=== PATIENT | female | born 1985 | race American Indian/Alaskan Native ===

== ENCOUNTER 2017-06-19 05:14 | Emergency (ER) | payer MEDICAID ==
[2017-06-19 05:39] VITALS: BP 104/64
--- NOTE | 2017-06-19 06:35 | Emergency Department Report ---
ED ENT HPI - General Chief complaint: Earache Stated complaint: EAR INFECTION Time Seen by Provider: 06/19/17 06:28 Source: patient Mode of arrival: Ambulatory Limitations: No Limitations - History of Present Illness Initial comments: earache x 1 week with fever for 3 days discharge x 2 days, sick daughter with aom 1 week ago 6 month at this time, pt has good [employer] follow up with [facility], and Primary care doctor , symptoms now include 5/10 pain and tenderness with movement, symptoms no relieve by sweet oil attempted for past 3 days. MD complaint: ear pain Onset/Timin -: week(s) Location: L ear Severity: moderate Severity scale (0 -10): 5 Quality: aching Consistency: intermittent Improves with: none Worsens with: position, movement Associated Symptoms: fever, discharge from ear. denies: tinnitus, hearing loss , rhinorrhea - Related Data Previous Rx's Medication Instructions Recorded Last Taken Type Acetaminophen [Acetaminophen 325 mg HI Q6HR PRN #60 supp 06/19/17 Unknown Rx SUPPOS] Cefdinir 300 mg PO BID #20 capsule 06/19/17 Unknown Rx Cipro/Dexameth 0.3/0.1% [Ciprodex 4 drops OT BID #1 bottle 06/19/17 Unknown Rx OTIC] Allergies Allergy/AdvReac Type Severity Reaction Status Date / Time No Known Allergies Allergy Verified 06/19/17 05:35 ED Dental HPI - General Chief complaint: Earache Stated complaint: EAR INFECTION Time Seen by Provider: 06/19/17 06:28 Source: patient Mode of arrival: Ambulatory Limitations: No Limitations - History of Present Illness MD complaint: ear pain Onset/Timin -: Sudden, week(s) Severity: moderate Quality: aching Consistency: intermittent Improves with: none Worsens with: movement - Related Data Previous Rx's Medication Instructions Recorded Last Taken Type Acetaminophen [Acetaminophen 325 mg HI Q6HR PRN #60 supp 06/19/17 Unknown Rx SUPPOS] Cefdinir 300 mg PO BID #20 capsule 06/19/17 Unknown Rx Cipro/Dexameth 0.3/0.1% [Ciprodex 4 drops OT BID #1 bottle 06/19/17 Unknown Rx OTIC] Allergies Allergy/AdvReac Type Severity Reaction Status Date / Time No Known Allergies Allergy Verified 06/19/17 05:35 ED Review of Systems ROS: Stated complaint: EAR INFECTION Other details as noted in HPI Constitutional: denies: chills, fever Eyes: denies: eye pain, eye discharge, vision change ENT: ear pain Respiratory: denies: cough, shortness of breath, wheezing Cardiovascular: denies: chest pain, palpitations Endocrine: no symptoms reported Gastrointestinal: denies: abdominal pain, nausea, diarrhea Genitourinary: denies: urgency, dysuria, discharge Musculoskeletal: denies: back pain, joint swelling, arthralgia Skin: denies: rash, lesions Neurological: denies: headache, weakness, paresthesias Psychiatric: denies: anxiety, depression Hematological/Lymphatic: denies: easy bleeding, easy bruising ED Past Medical Hx - Past Medical History Previous Medical History?: No - Surgical History Past Surgical History?: No - Social History Smoking Status: Never Smoker Substance Use Type: None - Medications Home Medications: Home Medications Medication Instructions Recorded Confirmed Last Taken Type Acetaminophen [Acetaminophen 325 mg HI Q6HR PRN #60 supp 06/19/17 Unknown Rx SUPPOS] Cefdinir 300 mg PO BID #20 capsule 06/19/17 Unknown Rx Cipro/Dexameth 0.3/0.1% [Ciprodex 4 drops OT BID #1 bottle 06/19/17 Unknown Rx OTIC] ED Physical Exam - General Limitations: No Limitations General appearance: alert - Head Head exam: Present: atraumatic, normocephalic - Eye Eye exam: Present: normal appearance, PERRL, EOMI Pupils: Present: normal accommodation - ENT ENT exam: Present: mucous membranes moist - Expanded ENT Exam Expanded TM/Canal exam: Erythema: Left TM, Loss of Landmarks: Left TM, Canal Discharge: Left TM, Canal Tenderness: Left TM Mouth exam: Present: normal external inspection, tongue normal. Absent: drooling, trismus, muffled voice Teeth exam: Present: normal inspection Throat exam: Positive: normal inspection. Negative: tonsillar erythema, tonsillomegaly, tonsillar exudate, R peritonsillar mass, L peritonsillar mass - Neck Neck exam: Present: normal inspection, full ROM. Absent: lymphadenopathy, thyromegaly - Respiratory Respiratory exam: Present: normal lung sounds bilaterally. Absent: respiratory distress - Cardiovascular Cardiovascular Exam: Present: regular rate, normal rhythm. Absent: systolic murmur, diastolic murmur, rubs, gallop - GI/Abdominal GI/Abdominal exam: Present: soft, normal bowel sounds - Rectal Rectal exam: Present: deferred - Extremities Exam Extremities exam: Present: normal inspection, normal capillary refill. Absent: tenderness, pedal edema, joint swelling, calf tenderness - Back Exam Back exam: Present: normal inspection - Neurological Exam Neurological exam: Present: alert, oriented X3, CN II-XII intact, normal gait, reflexes normal. Absent: motor sensory deficit - Psychiatric Psychiatric exam: Present: normal affect, normal mood - Skin Skin exam: Present: warm, dry, intact, normal color. Absent: rash ED Course Vital Signs 06/19/17 05:35 Temperature 98.8 F Pulse Rate 111 H Respiratory 20 Rate Blood Pressure 104/64 O2 Sat by Pulse 98 Oximetry ED Medical Decision Making - Medical Decision Making pt is a 27 y/o aaf 6 months who presents for ear pain and fever exam: left Otitis externa however loss landmarks and fever will treat for AOM, pt will follow up with [employer] as scheduled, will follow up with primary care as directed, pt verbalized agreement and understanding with discharge plan. Critical care attestation.: If time is entered above; I have spent that time in minutes in the direct care of this critically ill patient, excluding procedure time. ED Disposition Clinical Impression: AOM (acute otitis media) Qualifiers: Otitis media type: mucoid Laterality: left Qualified Code(s): H65.112 - Acute and subacute allergic otitis media (mucoid) (sanguinous) (serous), left ear Otitis externa Qualifiers: Otitis externa type: diffuse Chronicity: acute Laterality: left Qualified Code( s): H60.312 - Diffuse otitis externa, left ear Disposition: - TO HOME OR SELFCARE Is pt being admited?: No Does the pt Need Aspirin: No Condition: Good Instructions: Otitis Externa (ED), Otitis Media (ED) Prescriptions: Acetaminophen [Acetaminophen SUPPOS] 325 mg HI Q6HR PRN #60 supp PRN Reason: Pain Cefdinir 300 mg PO BID #20 capsule Cipro/Dexameth 0.3/0.1% [Ciprodex OTIC] 4 drops OT BID #1 bottle Referrals: PRIMARY CARE, [Primary Care Provider] - 3-5 Days Forms: Work/School Release Form(ED) Time of Disposition: 06:46
[2017-06-19] MEDS ORDERED: TYLENOL PO ONE (06:49)
== END 2017-06-19 07:01 | disposition home or self-care (01) ==
LOC: ED 05:14 → EDBD 05:14 → ED 07:01
DX: H65.112 Acute and subacute allergic otitis media (mucoid) (sanguinous) (serous), left ear (principal); H60.312 Diffuse otitis externa, left ear
CPT/HCPCS: 99282

== ENCOUNTER 2017-10-30 15:19 | Emergency (ER) | payer MEDICAID ==
[2017-10-30 16:07] LABS: Basophils # (Auto) 0.1 K/mm3 (0.0-0.1); Basophils % (Auto) 0.8 % (0.0-1.8); Eosinophils # (Auto) 0.1 K/mm3 (0.0-0.4); Eosinophils % (Auto) 1.1 % (0.0-4.3); Hematocrit 37.2 % (30.3-42.9); Hemoglobin 12.5 gm/dl (10.1-14.3); Lymphocytes # (Auto) 3.2 K/mm3 (1.2-5.4); Lymphocytes % (Auto) 46.9 % (13.4-35.0); Mean Corpuscular HGB Conc 34 % (30-34); Mean Corpuscular Hemoglobin 27 pg (28-32); Mean Corpuscular Volume 80 fl (79-97); Monocytes # (Auto) 0.4 K/mm3 (0.0-0.8); Monocytes % (Auto) 5.7 % (0.0-7.3); Platelet Count 255 K/mm3 (140-440); Red Blood Count 4.63 M/mm3 (3.65-5.03); Red Cell Distribution Width 12.9 % (13.2-15.2)
[2017-10-30 16:11] LABS: BUN/Creatinine Ratio 26; Blood Urea Nitrogen 13 mg/dL (7-17); Calcium 9.4 mg/dL (8.4-10.2); Hemolysis Index 5
[2017-10-30 16:19] LABS: INR 1.03 (0.87-1.13)
[2017-10-30 16:20] LABS: Partial Thromboplastin Time 36.5 Sec. (24.2-36.6)
[2017-10-30] MEDS ORDERED: ZOFRAN IV ONE (17:17)
[2017-10-30] MEDS ORDERED: MORPHINE IV ONE (17:17)
[2017-10-30] MEDS ORDERED: TORADOL IV ONE (17:17)
--- NOTE | 2017-10-30 17:40 | Emergency Department Report ---
ED Chest Pain HPI - General Chief Complaint: Chest Pain Stated Complaint: CHEST PAIN Time Seen by Provider: 10/30/17 17:05 Source: patient Mode of arrival: Ambulatory Limitations: No Limitations - History of Present Illness Initial Comments: 32 year old female with a past medical history asthma and PE presents complaining of chest pain and Lovenox noncompliance. Patient first had a PE in 2006 during her . At that moment on she has been prescribed Lovenox whenever she is . Patient just gave on September 12 and took Lovenox throughout her . Patient stopped the Lovenox 2 days ago because she thought it was causing her to be dizzy and have a headache. She developed chest pain this morning and therefore took a dose of Lovenox today. She complains of sharp pain to her sternal area and mid thoracic area that is intermittent. Pain is rated 8/10 and intensity, worse with movement, deep inspiration, and palpation. She denies shortness of breath, edema, or recent travel. Patient is unclear as to how long she needs to continue the Lovenox states that in the past she has required up to 1 month and didn't discontinue statin medication until she is again. Patient states she is not breast-feeding. Patient states she visited [facility] September [address] scan that was only positive for gas. Patient states she has been having some belching as well - Related Data Previous Rx's Medication Instructions Recorded Last Taken Type Acetaminophen [Acetaminophen TAB] 325 mg PO Q6HR PRN #60 tablet 06/19/17 Unknown Rx Cefdinir 300 mg PO BID #20 capsule 06/19/17 Unknown Rx Cipro/Dexameth 0.3/0.1% [Ciprodex 4 drops OT BID #1 bottle 06/19/17 Unknown Rx OTIC] traMADol [Ultram 50 MG tab] 50 mg PO Q6HR PRN #20 tablet 10/30/17 Unknown Rx Allergies Allergy/AdvReac Type Severity Reaction Status Date / Time No Known Allergies Allergy Verified 10/30/17 15:21 Heart Score - HEART Score History: Slightly suspicious EKG: Normal Age: < 45 Risk factors: No known risk factors Troponin: < normal limit HEART Score: 0 ED Review of Systems ROS: Stated complaint: CHEST PAIN Other details as noted in HPI Comment: All other systems reviewed and negative Other: Constitutional: No fevers chills Eyes: No eye pain visual changes ENT: No ear pain or throat pain Neck: Denies pain Respiratory: Denies cough wheezing shortness of breath Cardiovascular: As per HPI GI: Denies abdominal pain, nausea, vomiting, diarrhea : Denies dysuria Musculoskeletal: Denies back pain, joint swelling Skin: Denies rash, lesions, erythema Neurologic: Denies headache, numbness, weakness Psychiatric: Denies suicidal ideation, hallucinations ED Past Medical Hx - Past Medical History Hx Asthma: Yes Additional medical history: PE - Surgical History Past Surgical History?: No - Social History Smoking Status: Never Smoker Substance Use Type: None - Medications Home Medications: Home Medications Medication Instructions Recorded Confirmed Last Taken Type Acetaminophen [Acetaminophen TAB] 325 mg PO Q6HR PRN #60 tablet 06/19/17 Unknown Rx Cefdinir 300 mg PO BID #20 capsule 06/19/17 Unknown Rx Cipro/Dexameth 0.3/0.1% [Ciprodex 4 drops OT BID #1 bottle 06/19/17 Unknown Rx OTIC] traMADol [Ultram 50 MG tab] 50 mg PO Q6HR PRN #20 tablet 10/30/17 Unknown Rx ED Physical Exam - General Limitations: No Limitations - Other Other exam information: General: No limitations, patient is alert in no acute distress Head exam: Atraumatic, normocephalic Eyes exam: Normal appearance, pupils equal reactive to light, extraocular movements intact ENT: Moist mucous membrane, normal oropharynx Neck exam: Normal inspection, full range of motion, no meningismus nontender Respiratory exam: Clear to auscultation bilateral, no wheezes, rales, crackles. Reproducible sternal chest wall tenderness Cardiovascular: Normal rate and rhythm Abdomen: Soft, nondistended, and nontender, with normal bowel sounds, no rebound, or guarding Extremity: Full range of motion normal inspection no deformity, no calf tenderness or edema Back: Normal Inspection, full range of motion, no tenderness Neurologic: Alert, oriented x3, cranial nerves intact, no motor or sensory deficit Psychiatric: normal affect, normal mood Skin: Warm, dry, intact ED Course Vital Signs 10/30/17 15:21 Temperature 97.9 F Pulse Rate 79 Respiratory 20 Rate Blood Pressure 99/65 O2 Sat by Pulse 100 Oximetry - Consultations Consultation #1: 10/30/17 18:[address] 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 He states that patients may take Lovenox anywhere from 6 weeks to 3 months . Only Lovenox is indicated and not alternative anticoagulants. I informed him I'll encourage patient to follow-up in the office for further management TAZ score - Taz Score Age > 65: (0) No Aspirin use within the Past 7 Days: (0) No 3 or more CAD Risk Factors: (0) No 2 or more Angina events in past 24 hrs: (0) No Known CAD with more than 50% Stenosis: (0) No Elevated Cardiac Markers: (0) No ST Deviation Greater than 0.5mm: (0) No TAZ Score: 0 ED Medical Decision Making - Lab Data Result diagrams: 10/30/17 15:33 10/30/17 15:33 Lab Results 10/30/17 10/30/17 10/30/17 Range/Units 15:33 15:33 15:33 WBC 6.9 (4.5-11.0) K/mm3 RBC 4.63 (3.65-5.03) M/mm3 Hgb 12.5 (10.1-14.3) gm/dl Hct 37.2 (30.3-42.9) % MCV 80 (79-97) fl MCH 27 L (28-32) pg MCHC 34 (30-34) % RDW 12.9 L (13.2-15.2) % Plt Count 255 (140-440) K/mm3 Lymph % (Auto) 46.9 H (13.4-35.0) % [place] % (Auto) 5.7 (0.0-7.3) % Eos % (Auto) 1.1 (0.0-4.3) % Baso % (Auto) 0.8 (0.0-1.8) % Lymph # 3.2 (1.2-5.4) K/mm3 [place] # 0.4 (0.0-0.8) K/mm3 Eos # 0.1 (0.0-0.4) K/mm3 Baso # 0.1 (0.0-0.1) K/mm3 Seg Neutrophils % 45.5 (40.0-70.0) % Seg Neutrophils # 3.1 (1.8-7.7) K/mm3 PT 14.0 (12.2-14.9) Sec. INR 1.03 (0.87-1.13) APTT 36.5 (24.2-36.6) Sec. D-Dimer 361.00 H (0-234) ng/mlDDU Sodium 138 (137-145) mmol/L Potassium 4.2 (3.6-5.0) mmol/L Chloride 99.9 (98-107) mmol/L Carbon Dioxide 25 (22-30) mmol/L Anion Gap 17 mmol/L BUN 13 (7-17) mg/dL Creatinine 0.5 L (0.7-1.2) mg/dL Estimated GFR > 60 ml/min BUN/Creatinine Ratio 26 % Glucose 84 (65-100) mg/dL Calcium 9.4 (8.4-10.2) mg/dL Troponin T < 0.010 (0.00-0.029) ng/mL - EKG Data -: EKG Interpreted by Me EKG shows normal: sinus rhythm, axis (27), QRS complexes (93), ST-T waves (no stemi/t inv) Rate: normal (61) - EKG Data When compared to previous EKG there are: previous EKG unavailable - Radiology Data Radiology results: report reviewed (ct angio chest: normal) - Medical Decision Making Patient's pain is atypical and reproducible likely costochondritis. Patient also having some gas related pains as well. She will be encouraged to continue Tums/antacids as needed. She was also informed to avoid NSAIDs and she has taken Lovenox and will be given tramadol for pain - Differential Diagnosis PE, costochondritis, dyspepsia/ gas, atypical chest pain, [place] Critical Care Time: No Critical care attestation.: If time is entered above; I have spent that time in minutes in the direct care of this critically ill patient, excluding procedure time. ED Disposition Clinical Impression: Costochondritis, acute Disposition: DC-01 TO HOME OR SELFCARE Is pt being admited?: No Does the pt Need Aspirin: No Condition: Stable Instructions: Costochondritis (ED) Additional Instructions: Take the medication as prescribed. Follow up with your doctor and the reinforcing steel worker wire mesh provided. Return if symptoms worsen Prescriptions: traMADol [Ultram 50 MG tab] 50 mg PO Q6HR PRN #20 tablet PRN Reason: Pain Referrals: KATHRIN SINGH MD [Staff Physician] - 3-5 Days (reinforcing steel worker wire mesh) PRIMARY CARE, [Primary Care Provider] - 3-5 Days Time of Disposition: 19:15
--- NOTE | 2017-10-30 19:05 | Cat Scan Report ---
FINAL REPORT PROCEDURE: CT angiogram chest with contrast. TECHNIQUE: Computerized tomographic angiography of the chest was performed after the IV injection of iodinated nonionic contrast including image processing. The image data was postprocessed using 2-dimensional multiplanar reformatted (MPR) and 3-dimensional (MIP and/or volume rendered) techniques. HISTORY: Chest pain, history of pulmonary embolism, noncompliance with Lovenox. COMPARISON: No prior studies are available for comparison. FINDINGS: The trachea and central bronchi appear normal. The lungs are clear and well expanded. There are no signs of pneumonia. There are no pulmonary masses. There are no pleural effusions. The thoracic aorta has a normal caliber without evidence of dissection. The pulmonary arteries enhance normally. There are no definite filling defects to indicate pulmonary embolism. There is no mediastinal adenopathy. The heart size is normal. The adrenal glands are not enlarged. The thoracic skeleton appears intact. IMPRESSION: Normal study.
[2017-10-30 19:42] VITALS: BP 128/83
== END 2017-10-30 19:25 | disposition home or self-care (01) ==
LOC: ED 15:19
DX: M94.0 Chondrocostal junction syndrome [Tietze] (principal); J45.909 Unspecified asthma, uncomplicated
CPT/HCPCS: 36415; 71275; 80048; 84484; 85025; 85379; 85610; 85730; 93005; 93010; 96374; 96375; 99284; J1885; J2405; Q9967

== ENCOUNTER 2018-04-08 15:22 | Outpatient (CLI) | payer MEDICAID ==
--- NOTE | 2018-04-08 16:18 | XRay Report ---
FINAL REPORT EXAM: XR SHOULDER 2+V RT HISTORY: SHOULDER PAIN TECHNIQUE: AP, Y, and oblique views of the right shoulder PRIORS: None. FINDINGS: There is no evidence of acute fracture or dislocation. Joint spaces are maintained and bony mineralization is normal. Soft tissues are unremarkable. IMPRESSION: No acute abnormality identified in the right shoulder.
--- NOTE | 2018-04-08 16:20 | XRay Report ---
FINAL REPORT EXAM: XR SPINE THORACIC 3V HISTORY: UPPER BACK PAIN TECHNIQUE: AP, lateral and swimmer's views of the thoracic spine. PRIORS: None. FINDINGS: The vertebral body heights and disc spaces are well maintained. The alignment is normal. Pedicles are intact bilaterally at all levels. The paraspinal soft tissues are unremarkable. IMPRESSION: Normal thoracic spine.
== END 2018-04-08 15:23 | disposition home or self-care (01) ==
LOC: XRAY 15:22
PROVIDERS: ATTEND Internal Medicine
DX: M54.6 Pain in thoracic spine (principal); M25.511 Pain in right shoulder
CPT/HCPCS: 72072

== ENCOUNTER 2018-08-06 17:02 | Emergency (ER) | payer MEDICAID | END 2018-08-06 18:33 | disposition left against medical advice (07) | LOC: ED 17:02 | DX: M79.645 Pain in left finger(s) (principal); Z53.21 Procedure and treatment not carried out due to patient leaving prior to being seen by health care provider ==

== ENCOUNTER 2019-01-06 11:58 | Emergency (ER) | payer MEDICARE ==
[2019-01-06] MEDS ORDERED: ASPIRIN PO ONE (12:54)
[2019-01-06 13:18] LABS: Basophils # (Auto) 0.1 K/mm3 (0.0-0.1); Basophils % (Auto) 0.5 % (0.0-1.8); Eosinophils % (Auto) 0.1 % (0.0-4.3); Hemoglobin 11.9 gm/dl (10.1-14.3); Lymphocytes # (Auto) 2.5 K/mm3 (1.2-5.4); Lymphocytes % (Auto) 25.4 % (13.4-35.0); Mean Corpuscular HGB Conc 33 % (30-34); Mean Corpuscular Volume 81 fl (79-97); Monocytes # (Auto) 0.4 K/mm3 (0.0-0.8); Monocytes % (Auto) 4.5 % (0.0-7.3); Platelet Count 360 K/mm3 (140-440); Red Blood Count 4.46 M/mm3 (3.65-5.03); Red Cell Distribution Width 13.1 % (13.2-15.2)
[2019-01-06 13:42] LABS: BUN/Creatinine Ratio 16; Blood Urea Nitrogen 8 mg/dL (7-17); Calcium 9.2 mg/dL (8.4-10.2); Hemolysis Index 6
--- NOTE | 2019-01-06 13:51 | XRay Report ---
ROUTINE CHEST, TWO VIEWS: HISTORY: chest pain. The trachea, heart, mediastinal contour, lung fontenot and bony thorax are unremarkable. IMPRESSION: Unremarkable chest x-ray.
--- NOTE | 2019-01-06 17:28 | Emergency Department Report ---
ED General Adult HPI - General Chief complaint: Arrhythmia/Palpitations Stated complaint: PALPITATIONS Time Seen by Provider: 01/06/19 15:41 Source: patient Mode of arrival: Ambulatory Limitations: No Limitations - History of Present Illness Initial comments: 33-year-old [place] female with past medical history of palpitations and chest pain. Currently been evaluated by cardiology with a two-week Holter monitor presents to the emergency department complaining of exacerbation while eating pancakes at [facility] earlier today. States she was eating and sitting down. She had a sudden onset of a racing heart pressure to her back that has since then resolved. She still has occasional pressure sensation to the back. She she is postictal Holter monitor back to the cardiology just today, but did not make it to the office because she decided to come to the ER to get her her issue evaluated. She reports no syncope, hemoptysis, hematemesis, fever, trauma, nausea, vomiting or shortness of breath. -: Sudden, minutes(s) (the episode lasted for a matter of minutes) Location: back Radiation: non-radiation Severity scale (0 -10): 10 Consistency: constant, now resolved Improves with: none Worsens with: none Associated Symptoms: shortness of breath (no shortness of breath occurring sensation while heart was racing earlier today around 11:00). denies: cough, diaphoresis, fever/chills, loss of appetite, malaise, syncope, weakness - Related Data Previous Rx's Medication Instructions Recorded Last Taken Type Acetaminophen [Acetaminophen TAB] 325 mg PO Q6HR PRN #60 tablet 06/19/17 Unknown Rx Cefdinir 300 mg PO BID #20 capsule 06/19/17 Unknown Rx Cipro/Dexameth 0.3/0.1% [Ciprodex 4 drops OT BID #1 bottle 06/19/17 Unknown Rx OTIC] traMADol [Ultram 50 MG tab] 50 mg PO Q6HR PRN #20 tablet 10/30/17 Unknown Rx Acetaminophen [Tylenol] 325 mg PO TID #20 capsule 09/21/18 Unknown Rx Amoxicillin [Amoxicillin TAB] 875 mg PO BID #10 tablet 09/21/18 Unknown Rx Nystas/Diphen/Xyl Visc/Mylanta 15 ml PO TID #120 ml 09/21/18 Unknown Rx [Magic Mouthwash] predniSONE [Deltasone] 10 mg PO QDAY #5 tab 11/21/18 Unknown Rx hydrOXYzine HCL [Atarax] 25 mg PO QHS PRN #30 tablet 12/12/18 Unknown Rx Allergies Allergy/AdvReac Type Severity Reaction Status Date / Time No Known Allergies Allergy Verified 10/30/17 15:21 ED Review of Systems ROS: Stated complaint: PALPITATIONS Other details as noted in HPI Constitutional: denies: chills, fever Eyes: denies: eye pain, eye discharge, vision change ENT: denies: ear pain, throat pain Respiratory: denies: cough, shortness of breath, wheezing Cardiovascular: palpitations. denies: chest pain Endocrine: no symptoms reported Gastrointestinal: denies: abdominal pain, nausea, diarrhea Genitourinary: denies: urgency, dysuria, discharge Musculoskeletal: denies: back pain, joint swelling, arthralgia Skin: denies: rash, lesions Neurological: denies: headache, weakness, paresthesias Psychiatric: denies: anxiety, depression Hematological/Lymphatic: denies: easy bleeding, easy bruising ED Past Medical Hx - Past Medical History Hx GERD: Yes Hx Asthma: Yes Additional medical history: PE. INCREASE HEART RATE - Social History Smoking Status: Never Smoker Substance Use Type: None - Medications Home Medications: Home Medications Medication Instructions Recorded Confirmed Last Taken Type Acetaminophen [Acetaminophen TAB] 325 mg PO Q6HR PRN #60 tablet 06/19/17 Unknown Rx Cefdinir 300 mg PO BID #20 capsule 06/19/17 Unknown Rx Cipro/Dexameth 0.3/0.1% [Ciprodex 4 drops OT BID #1 bottle 06/19/17 Unknown Rx OTIC] traMADol [Ultram 50 MG tab] 50 mg PO Q6HR PRN #20 tablet 10/30/17 Unknown Rx Acetaminophen [Tylenol] 325 mg PO TID #20 capsule 09/21/18 Unknown Rx Amoxicillin [Amoxicillin TAB] 875 mg PO BID #10 tablet 09/21/18 Unknown Rx Nystas/Diphen/Xyl Visc/Mylanta 15 ml PO TID #120 ml 09/21/18 Unknown Rx [Magic Mouthwash] predniSONE [Deltasone] 10 mg PO QDAY #5 tab 09/21/18 Unknown Rx hydrOXYzine HCL [Atarax] 25 mg PO QHS PRN #30 tablet 12/12/18 Unknown Rx ED Physical Exam - General Limitations: No Limitations General appearance: alert, in no apparent distress, other (note no acute distress, talking on the phone and taxing with no complications. Speaking in full sentences, smiling, appears to be in good mood) - Head Head exam: Present: atraumatic, normocephalic - Eye Eye exam: Present: normal appearance - ENT ENT exam: Present: mucous membranes moist - Neck Neck exam: Present: normal inspection - Respiratory Respiratory exam: Present: normal lung sounds bilaterally. Absent: respiratory distress - Cardiovascular Cardiovascular Exam: Present: regular rate, normal rhythm. Absent: systolic murmur, diastolic murmur, rubs, gallop - GI/Abdominal GI/Abdominal exam: Present: soft, normal bowel sounds - Extremities Exam Extremities exam: Present: normal inspection - Back Exam Back exam: Present: normal inspection - Neurological Exam Neurological exam: Present: alert, oriented X3 - Psychiatric Psychiatric exam: Present: normal affect, normal mood - Skin Skin exam: Present: warm, dry, intact, normal color. Absent: rash ED Course Vital Signs 01/06/19 12:52 Temperature 98.2 F Pulse Rate 100 H Respiratory 16 Rate Blood Pressure 117/72 O2 Sat by Pulse 99 Oximetry ED Medical Decision Making - Lab Data Result diagrams: 01/06/19 13:02 01/06/19 13:02 - Medical Decision Making No new presentation to the palpitations episodes seized when the high Holter monitor with a relatively reported the benign palpatory history since wearing the monitor until today. She reported no syncope. Symptoms have have him resolved with no complications. I instructed her to follow-up with cardiology and to alert them of the occurrence to 2 day so that they checked a Holter monitor as she is not actively having any symptoms at current. Laboratory data and chest x-ray is benign. An EKG showed a heart rate of probably of 87, sinus rhythm with no ST segment developments. There is no J-point J-point elevation. No sustained ventricular arrhythmias. Critical care attestation.: If time is entered above; I have spent that time in minutes in the direct care of this critically ill patient, excluding procedure time. ED Disposition Clinical Impression: Heart palpitations Disposition: DC-01 TO HOME OR SELFCARE Is pt being admited?: No Does the pt Need Aspirin: No Condition: Stable Instructions: Palpitations (ED) Additional Instructions: Be sure to follow-up and call your learning and development assistant as for further evaluation and treatment recommendations. I left findings today were nonspecific no acute findings Referrals: ISABEL HERNANDEZSULPHUR SPRINGS MD JJ [Primary Care Provider] - 3-5 Days PAULINA PAL MD [Staff Physician] - 3-5 Days
[2019-01-06 18:00] VITALS: BP 104/72
== END 2019-01-06 17:59 | disposition home or self-care (01) ==
LOC: ED 11:58
DX: R00.2 Palpitations (principal); K21.9 Gastro-esophageal reflux disease without esophagitis; J45.909 Unspecified asthma, uncomplicated
CPT/HCPCS: 36415; 71046; 80048; 84484; 85025; 93005; 93010

== ENCOUNTER 2019-04-30 19:54 | Emergency (ER) | payer MEDICAID, MEDICARE ==
[2019-04-30] MEDS ORDERED: ALUM-MAG HYDROX-SIMETH 200-200-20MG/5ML PO ONE (20:22)
[2019-04-30] MEDS ORDERED: TYLENOL PO ONE (20:22)
--- NOTE | 2019-04-30 20:29 | Emergency Department Report ---
ED Chest Pain HPI - General Chief Complaint: Chest Pain Stated Complaint: CHEST PAIN Time Seen by Provider: 04/30/19 20:18 Source: patient, EMS Mode of arrival: Stretcher Limitations: No Limitations - History of Present Illness Initial Comments: Mrs. Morfin is a 33 yo female with hx of irregular heartbeat, PE, GERD who presents with chest discomfort for 4 hours, gradual onset mild in severity. No change with aspirin. NO radiation. No dyspnea. No leg pain. No current medication. Followed by city maintenance manager. Encouraged to take medication for rapid heartbeat. However, she desires a naturopathic approach. MD Complaint: chest pain -: Gradual Onset: during rest Pain Location: substernal Severity: moderate Severity scale (0 -10): 8 Quality: aching Consistency: constant Improves With: nothing Worsens With: nothing - Related Data Previous Rx's Medication Instructions Recorded Last Taken Type Acetaminophen [Acetaminophen TAB] 325 mg PO Q6HR PRN #60 tablet 06/19/17 Unknown Rx Cefdinir 300 mg PO BID #20 capsule 06/19/17 Unknown Rx Cipro/Dexameth 0.3/0.1% [Ciprodex 4 drops OT BID #1 bottle 06/19/17 Unknown Rx OTIC] traMADol [Ultram 50 MG tab] 50 mg PO Q6HR PRN #20 tablet 10/30/17 Unknown Rx Acetaminophen [Tylenol] 325 mg PO TID #20 capsule 09/21/18 Unknown Rx Amoxicillin [Amoxicillin TAB] 875 mg PO BID #10 tablet 09/21/18 Unknown Rx Nystas/Diphen/Xyl Visc/Mylanta 15 ml PO TID #120 ml 09/21/18 Unknown Rx [Magic Mouthwash] predniSONE [Deltasone] 10 mg PO QDAY #5 tab 09/21/18 Unknown Rx hydrOXYzine HCL [Atarax] 25 mg PO QHS PRN #30 tablet 12/12/18 Unknown Rx Allergies Allergy/AdvReac Type Severity Reaction Status Date / Time No Known Allergies Allergy Verified 03/18/19 16:28 Heart Score - HEART Score History: Slightly suspicious EKG: Normal Age: < 45 Risk factors: 1-2 risk factors Troponin: < normal limit HEART Score: 1 ED Review of Systems ROS: Stated complaint: CHEST PAIN Other details as noted in HPI Comment: All other systems reviewed and negative Constitutional: denies: fever Eyes: denies: eye discharge Respiratory: denies: cough Cardiovascular: chest pain ED Past Medical Hx - Past Medical History Previous Medical History?: Yes Hx Pulmonary Embolism: Yes Hx GERD: Yes Hx Asthma: Yes Additional medical history: irregular heart beat? - Surgical History Past Surgical History?: No - Social History Smoking Status: Never Smoker - Medications Home Medications: Home Medications Medication Instructions Recorded Confirmed Last Taken Type Acetaminophen [Acetaminophen TAB] 325 mg PO Q6HR PRN #60 tablet 06/19/17 Unknown Rx Cefdinir 300 mg PO BID #20 capsule 06/19/17 Unknown Rx Cipro/Dexameth 0.3/0.1% [Ciprodex 4 drops OT BID #1 bottle 06/19/17 Unknown Rx OTIC] traMADol [Ultram 50 MG tab] 50 mg PO Q6HR PRN #20 tablet 10/30/17 Unknown Rx Acetaminophen [Tylenol] 325 mg PO TID #20 capsule 09/21/18 Unknown Rx Amoxicillin [Amoxicillin TAB] 875 mg PO BID #10 tablet 09/21/18 Unknown Rx Nystas/Diphen/Xyl Visc/Mylanta 15 ml PO TID #120 ml 09/21/18 Unknown Rx [Magic Mouthwash] predniSONE [Deltasone] 10 mg PO QDAY #5 tab 09/21/18 Unknown Rx hydrOXYzine HCL [Atarax] 25 mg PO QHS PRN #30 tablet 12/12/18 Unknown Rx ED Physical Exam - General Limitations: No Limitations General appearance: alert - Head Head exam: Present: atraumatic, normocephalic - Eye Eye exam: Present: normal appearance - ENT ENT exam: Present: mucous membranes moist - Neck Neck exam: Present: normal inspection, full ROM - Respiratory Respiratory exam: Present: normal lung sounds bilaterally. Absent: respiratory distress, wheezes, rales, rhonchi - Cardiovascular Cardiovascular Exam: Present: regular rate, normal rhythm, normal heart sounds. Absent: systolic murmur, diastolic murmur, rubs, gallop - GI/Abdominal GI/Abdominal exam: Present: soft, normal bowel sounds. Absent: distended, tenderness, guarding, rebound - Extremities Exam Extremities exam: Present: normal inspection - Back Exam Back exam: Present: normal inspection - Neurological Exam Neurological exam: Present: alert, oriented X3 - Psychiatric Psychiatric exam: Present: normal affect, normal mood - Skin Skin exam: Present: warm, dry, intact, normal color. Absent: rash ED Course Vital Signs 04/30/19 20:16 Temperature 98.2 F Pulse Rate 86 Respiratory 16 Rate Blood Pressure 113/80 [Left] O2 Sat by Pulse 99 Oximetry TAZ score - Taz Score Age > 65: (0) No Aspirin use within the Past 7 Days: (0) No 3 or more CAD Risk Factors: (0) No 2 or more Angina events in past 24 hrs: (0) No Known CAD with more than 50% Stenosis: (0) No Elevated Cardiac Markers: (0) No ST Deviation Greater than 0.5mm: (0) No TAZ Score: 0 ED Medical Decision Making - Lab Data Laboratory Results - last 24 hr 04/30/19 04/30/19 20:25 20:25 WBC 7.2 RBC 4.24 Hgb 11.8 Hct 34.7 MCV 82 MCH 28 MCHC 34 RDW 12.9 L Plt Count 326 Lymph % (Auto) 34.5 [place] % (Auto) 7.3 Eos % (Auto) 0.4 Baso % (Auto) 0.9 Lymph # 2.5 [place] # 0.5 Eos # 0.0 Baso # 0.1 Seg Neutrophils % 56.9 Seg Neutrophils # 4.1 Sodium 136 L Potassium 3.6 Chloride 100.2 Carbon Dioxide 24 Anion Gap 15 BUN 14 Creatinine 0.7 Estimated GFR > 60 BUN/Creatinine Ratio 20 Glucose 103 H Calcium 9.2 Troponin T < 0.010 - EKG Data EKG shows normal: sinus rhythm, axis, intervals, QRS complexes, ST-T waves Rate: normal - Medical Decision Making Mrs. Morfin presents with chest pain atypical for ACS. She is low risk heart score is 1. Perc negative for PE. I strongly encouraged her to follow her city maintenance manager. Discharged home. Critical care attestation.: If time is entered above; I have spent that time in minutes in the direct care of this critically ill patient, excluding procedure time. ED Disposition Clinical Impression: Chest pain Disposition: DC-01 TO HOME OR SELFCARE Is pt being admited?: No Does the pt Need Aspirin: No Condition: Stable Instructions: Chest Pain (ED) Additional Instructions: Please see your personal city maintenance manager this week. Forms: Work/School Release Form(ED)
[2019-04-30 20:52] LABS: Basophils # (Auto) 0.1 K/mm3 (0.0-0.1); Basophils % (Auto) 0.9 % (0.0-1.8); Eosinophils % (Auto) 0.4 % (0.0-4.3); Hematocrit 34.7 % (30.3-42.9); Hemoglobin 11.8 gm/dl (10.1-14.3); Lymphocytes # (Auto) 2.5 K/mm3 (1.2-5.4); Lymphocytes % (Auto) 34.5 % (13.4-35.0); Mean Corpuscular HGB Conc 34 % (30-34); Mean Corpuscular Volume 82 fl (79-97); Monocytes # (Auto) 0.5 K/mm3 (0.0-0.8); Monocytes % (Auto) 7.3 % (0.0-7.3); Platelet Count 326 K/mm3 (140-440); Red Blood Count 4.24 M/mm3 (3.65-5.03); Red Cell Distribution Width 12.9 % (13.2-15.2)
[2019-04-30 21:11] LABS: BUN/Creatinine Ratio 20; Blood Urea Nitrogen 14 mg/dL (7-17); Calcium 9.2 mg/dL (8.4-10.2); Hemolysis Index 16
[2019-04-30 21:31] VITALS: BP 122/69
== END 2019-04-30 21:30 | disposition home or self-care (01) ==
LOC: ED 19:54
DX: R07.89 Other chest pain (principal); K21.0 Gastro-esophageal reflux disease with esophagitis; J45.909 Unspecified asthma, uncomplicated; Z79.899 Other long term (current) drug therapy
CPT/HCPCS: 36415; 80048; 84484; 85025; 93005; 93010; 99284

== ENCOUNTER 2019-07-10 10:32 | Emergency (ER) | payer MEDICAID, MEDICARE ==
[2019-07-10 11:06] VITALS: BP 106/68
[2019-07-10] MEDS ORDERED: BICILLIN L-A IM ONE (13:02)
--- NOTE | 2019-07-10 13:05 | Emergency Department Report ---
ED ENT HPI - General Chief complaint: Sore Throat Stated complaint: SORE THROAT Time Seen by Provider: 07/10/19 12:58 Source: patient Mode of arrival: Ambulatory Limitations: No Limitations - History of Present Illness MD complaint: sore throat -: days(s) (2) Severity: moderate Severity scale (0 -10): 3 Associated Symptoms: sore throat. denies: fever, cough, gum swelling - Related Data Previous Rx's Medication Instructions Recorded Last Taken Type Acetaminophen [Acetaminophen TAB] 325 mg PO Q6HR PRN #60 tablet 06/19/17 Unknown Rx Cefdinir 300 mg PO BID #20 capsule 06/19/17 Unknown Rx Cipro/Dexameth 0.3/0.1% [Ciprodex 4 drops OT BID #1 bottle 06/19/17 Unknown Rx OTIC] traMADol [Ultram 50 MG tab] 50 mg PO Q6HR PRN #20 tablet 10/30/17 Unknown Rx Acetaminophen [Tylenol] 325 mg PO TID #20 capsule 09/21/18 Unknown Rx Amoxicillin [Amoxicillin TAB] 875 mg PO BID #10 tablet 09/21/18 Unknown Rx Nystas/Diphen/Xyl Visc/Mylanta 15 ml PO TID #120 ml 09/21/18 Unknown Rx [Magic Mouthwash] predniSONE [Deltasone] 10 mg PO QDAY #5 tab 09/21/18 Unknown Rx hydrOXYzine HCL [Atarax] 25 mg PO QHS PRN #30 tablet 12/12/18 Unknown Rx Allergies Allergy/AdvReac Type Severity Reaction Status Date / Time No Known Allergies Allergy Verified 03/18/19 16:28 ED Dental HPI - General Chief complaint: Sore Throat Stated complaint: SORE THROAT Time Seen by Provider: 07/10/19 12:58 Source: patient Mode of arrival: Ambulatory Limitations: No Limitations - Related Data Previous Rx's Medication Instructions Recorded Last Taken Type Acetaminophen [Acetaminophen TAB] 325 mg PO Q6HR PRN #60 tablet 06/19/17 Unknown Rx Cefdinir 300 mg PO BID #20 capsule 06/19/17 Unknown Rx Cipro/Dexameth 0.3/0.1% [Ciprodex 4 drops OT BID #1 bottle 06/19/17 Unknown Rx OTIC] traMADol [Ultram 50 MG tab] 50 mg PO Q6HR PRN #20 tablet 10/30/17 Unknown Rx Acetaminophen [Tylenol] 325 mg PO TID #20 capsule 09/21/18 Unknown Rx Amoxicillin [Amoxicillin TAB] 875 mg PO BID #10 tablet 09/21/18 Unknown Rx Nystas/Diphen/Xyl Visc/Mylanta 15 ml PO TID #120 ml 09/21/18 Unknown Rx [Magic Mouthwash] predniSONE [Deltasone] 10 mg PO QDAY #5 tab 09/21/18 Unknown Rx hydrOXYzine HCL [Atarax] 25 mg PO QHS PRN #30 tablet 12/12/18 Unknown Rx Allergies Allergy/AdvReac Type Severity Reaction Status Date / Time No Known Allergies Allergy Verified 03/18/19 16:28 ED Review of Systems ROS: Stated complaint: SORE THROAT Other details as noted in HPI Comment: All other systems reviewed and negative Constitutional: denies: chills, fever ENT: throat pain Respiratory: denies: cough, shortness of breath Cardiovascular: denies: chest pain Gastrointestinal: denies: abdominal pain, nausea, vomiting ED Past Medical Hx - Past Medical History Previous Medical History?: Yes Hx Pulmonary Embolism: Yes Hx GERD: Yes Hx Asthma: Yes Additional medical history: irregular heart beat? - Surgical History Past Surgical History?: No - Social History Smoking Status: Never Smoker Substance Use Type: None - Medications Home Medications: Home Medications Medication Instructions Recorded Confirmed Last Taken Type Acetaminophen [Acetaminophen TAB] 325 mg PO Q6HR PRN #60 tablet 06/19/17 Unknown Rx Cefdinir 300 mg PO BID #20 capsule 06/19/17 Unknown Rx Cipro/Dexameth 0.3/0.1% [Ciprodex 4 drops OT BID #1 bottle 06/19/17 Unknown Rx OTIC] traMADol [Ultram 50 MG tab] 50 mg PO Q6HR PRN #20 tablet 10/30/17 Unknown Rx Acetaminophen [Tylenol] 325 mg PO TID #20 capsule 09/21/18 Unknown Rx Amoxicillin [Amoxicillin TAB] 875 mg PO BID #10 tablet 09/21/18 Unknown Rx Nystas/Diphen/Xyl Visc/Mylanta 15 ml PO TID #120 ml 09/21/18 Unknown Rx [Magic Mouthwash] predniSONE [Deltasone] 10 mg PO QDAY #5 tab 09/21/18 Unknown Rx hydrOXYzine HCL [Atarax] 25 mg PO QHS PRN #30 tablet 12/12/18 Unknown Rx ED Physical Exam - General Limitations: No Limitations General appearance: alert, in no apparent distress - Head Head exam: Present: atraumatic, normocephalic, normal inspection - Eye Eye exam: Present: normal appearance - ENT ENT exam: Present: other (pharyngeal erythema and tonsillar exudate) - Respiratory Respiratory exam: Present: normal lung sounds bilaterally - Cardiovascular Cardiovascular Exam: Present: regular rate, normal rhythm, normal heart sounds - Neurological Exam Neurological exam: Present: alert, oriented X3, normal gait ED Course Vital Signs 07/10/19 11:04 Temperature 98.5 F Pulse Rate 80 Respiratory 18 Rate Blood Pressure 106/68 O2 Sat by Pulse 99 Oximetry ED Medical Decision Making - Medical Decision Making Positive strep test. Patient received Bicillin 1.4 million units intramuscularly. Critical care attestation.: If time is entered above; I have spent that time in minutes in the direct care of this critically ill patient, excluding procedure time. ED Disposition Clinical Impression: Strep pharyngitis Disposition: - TO HOME OR SELFCARE Is pt being admited?: No Condition: Stable Instructions: Strep Throat (ED) Referrals: [facility] [Provider Group] - 3-5 Days
== END 2019-07-10 13:18 | disposition home or self-care (01) ==
LOC: ED 10:32
DX: J02.0 Streptococcal pharyngitis (principal); K21.9 Gastro-esophageal reflux disease without esophagitis; J45.909 Unspecified asthma, uncomplicated; Z79.899 Other long term (current) drug therapy; Z86.711 Personal history of pulmonary embolism
CPT/HCPCS: 87430; 96372; 99283; J0561